=== PATIENT | female | born 1965 | race African-American/Black ===

== ENCOUNTER 2021-04-16 12:45 | Outpatient (REF) | payer MEDICAID, SELFPAY ==
--- NOTE | ~2021-04-16 | XR_ITS ---
EXAMINATION: XR CERVICAL SPINE CLINICAL INFORMATION: Cervical spondylosis. COMPARISON: None. TECHNIQUE: 6 views of the cervical spine, inclusive of flexion and extension views, were obtained. FINDINGS: There is no evidence of acute fracture of the cervical spine. No abnormal prevertebral soft tissue swelling is seen. There is anterior marginal spurring seen C4-C7. Disc spaces are essentially maintained. There is some mild neural foraminal narrowing related to spurring of the joints of [place] bilaterally at the C5-C6 level. No destructive bony lesion appreciated. XR/XR cervical spine min 6V IMPRESSION: Cervical spondylosis, most significant at the C5-C6 level without evidence of acute fracture or destructive bony lesion.
== END 2021-04-16 12:46 | disposition home or self-care (01) ==
LOC: HO.XRAY 12:45
PROVIDERS: PCP Internal Medicine; Visit Provider Psychiatry & Neurology Neurology
DX: M47.812 Spondylosis without myelopathy or radiculopathy, cervical region (principal)
CPT/HCPCS: 72052

== ENCOUNTER 2022-11-08 11:23 | Outpatient (REF) | payer MEDICAID, SELFPAY ==
--- NOTE | ~2022-11-08 | MM_ITS ---
EXAMINATION: MM SCREENING DIGITAL BREAST TOMOSYNTHESIS, BILATERAL CLINICAL INFORMATION: Screening. Asymptomatic. Family history breast cancer including mother, 2 sisters. The lifetime risk of breast cancer based on the Tyrer-Cuzick Model is 15%. COMPARISON: Mammography: 04/23/2017, 05/28/2012 TECHNIQUE: Digital breast tomosynthesis is performed in both the craniocaudal and mediolateral oblique views along with computer-aided detection (CAD). Synthesized 2D images are generated from the tomosynthesis. FINDINGS: There are scattered areas of fibroglandular density (ACR BI-RADS breast composition Category b). There are no significant masses, abnormal calcifications, or other abnormalities. Breast tissue composition borders on predominantly fatty. Background stromal and fibroglandular densities are similar to prior studies. No developing density. The axilla and skin contours are unremarkable. MM/MM tomosynthesis screening BI IMPRESSION: No mammographic evidence of malignancy. ASSESSMENT: BI-RADS 1: Negative RECOMMENDATION: Routine annual mammography screening. This patient's information was entered into a reminder system with a target due date for their next mammogram.
== END 2022-11-08 11:24 | disposition home or self-care (01) ==
LOC: HO.MAMMO 11:23
PROVIDERS: PCP Internal Medicine; Visit Provider Internal Medicine
DX: Z12.31 Encounter for screening mammogram for malignant neoplasm of breast (principal)
CPT/HCPCS: 77063; 77067

== ENCOUNTER 2022-11-26 13:26 | Outpatient (REF) | payer MEDICAID, SELFPAY ==
--- NOTE | ~2022-11-26 | XR_ITS ---
EXAMINATION: XR HIP, LEFT CLINICAL INFORMATION: Left groin pain Pain radiating to the back COMPARISON: Left hip 01/14/2012 TECHNIQUE: Two views of the left hip. FINDINGS: The bones are intact. No fracture. Alignment is anatomic. Hip joint space is maintained. The left SI joint is normal. XR/XR hip LT min 2V IMPRESSION: No bony abnormality.
== END 2022-11-26 13:27 | disposition home or self-care (01) ==
LOC: HO.XRAY 13:26
PROVIDERS: PCP Internal Medicine; Visit Provider Internal Medicine
DX: R10.32 Left lower quadrant pain (principal)
CPT/HCPCS: 73502

== ENCOUNTER 2023-11-14 11:44 | Outpatient (REF) | payer MEDICAID, SELFPAY ==
--- NOTE | ~2023-11-14 | MM_ITS ---
EXAMINATION: MM SCREENING DIGITAL BREAST TOMOSYNTHESIS, BILATERAL CLINICAL INFORMATION: Screening. Asymptomatic. COMPARISON: Mammography: This study is compared with prior exams dating back to 2017. TECHNIQUE: Digital breast tomosynthesis is performed in both the craniocaudal and mediolateral oblique views along with computer-aided detection (CAD). Synthesized 2D images are generated from the tomosynthesis. FINDINGS: The breasts are almost entirely fatty (ACR BI-RADS breast composition Category a). There are no significant masses, abnormal calcifications, or other abnormalities. MM/MM tomosynthesis screening BI IMPRESSION: No mammographic evidence of malignancy. ASSESSMENT: BI-RADS BI-RADS 1 - Negative RECOMMENDATION: Routine annual mammography screening. 1 year F/U This examination should not preclude the clinical evaluation of a suspicious palpable abnormality. This patient's information was entered into a reminder system with a target due date for their next mammogram.
== END 2023-11-14 11:45 | disposition home or self-care (01) ==
LOC: HO.MAMMO 11:44
PROVIDERS: PCP Internal Medicine; Visit Provider Internal Medicine
DX: Z12.31 Encounter for screening mammogram for malignant neoplasm of breast (principal)
CPT/HCPCS: 77063; 77067

== ENCOUNTER → 2023-11-14 12:15 | Outpatient (BNV) | payer MEDICAID, SELFPAY | PROVIDERS: PCP Internal Medicine; Visit Provider Radiology Diagnostic Radiology | DX: Z12.31 Encounter for screening mammogram for malignant neoplasm of breast (principal) | CPT/HCPCS: 77063; 77067 ==

== ENCOUNTER 2023-11-18 14:00 | Outpatient (REF) | payer MEDICAID, SELFPAY ==
[2023-11-18 16:02] LABS: MANUAL DIFF FLAG NO
[2023-11-18 16:09] LABS: Basophils Absolute Auto 0.1 X10*3/uL (0.0-0.2); Basophils Percent Auto 0.7 % (0-2); Eosinophils Absolute Auto 0.1 X10*3/uL (0.0-0.4); Eosinophils Percent Auto 1.1 % (0-4); Hematocrit 40.4 % (37.0-47.0); Hemoglobin 13.2 g/dl (12.0-16.0); Imm Gran Abs Auto 0.02 X10*3/uL (0.00-0.03); Imm Gran Pct Auto 0.2 % (0.0-0.4); Lymphocytes Absolute Auto 3.5 X10*3/uL (1.2-4.9); Lymphocytes Percent Auto 37.8 % (20-40); Mean Corpuscular HGB Conc 32.7 g/dl (31.0-35.0); Mean Corpuscular Hemoglobin 28.4 pg (27.0-33.0); Mean Corpuscular Volume 87.1 fL (80.0-98.0); Mean Platelet Volume 11.7 fL (9.4-12.3); Monocytes Absolute Auto 0.5 X10*3/uL (0.1-1.2); Monocytes Percent Auto 4.9 % (2-11); Neutrophils Absolute Auto 5.1 x10*3/uL (2.0-8.3); Neutrophils Percent Auto 55.3 % (45-73); Platelet Count 258 X10*3/uL (160-400); Red Blood Count 4.64 X10*6/uL (4.20-5.50); Red Cell Distribution Width 13.6 % (11.0-16.0); White Blood Count 9.1 X10*3/uL (4.8-10.8)
[2023-11-18 16:34] LABS: Alanine Aminotransferase 16 U/L (0-31); Alkaline Phosphatase 97 U/L (39-117); Anion Gap 13 (12-20); Aspartate Amino Transferase 20 U/L (5-31); Bilirubin Total 0.2 mg/dL (0.0-1.0); Blood Urea Nitrogen 12 mg/dL (9-16); Calcium 9.5 mg/dL (8.4-10.2); Carbon Dioxide 24 mmol/L (22-29); Chloride 109 mmol/L (96-108); Cholesterol 254 mg/dL (<200); Estimated Glomerular Filt Rate > 60; Glucose Random 90 mg/dL (60-115); HDL Cholesterol 43 mg/dL (>40); LDL Cholesterol Calculated 159 mg/dL (<100); Sodium 142 mmol/L (135-145); Total Protein 7.8 g/dL (6.5-8.0); Triglycerides 262 mg/dL (<150)
[2023-11-19 09:30] LABS: HIV AB/AG Nonreactive (Nonreactive); HIV Num 1 0.05 S/CO (0.00-0.99)
[2023-11-27 07:59] LABS: HPV mRNA E6/E7 rflx Not Detected (Not Detected)
== END 2023-11-18 14:01 | disposition home or self-care (01) ==
LOC: HO.HHCL 14:00
PROVIDERS: Advanced Practice Midwife; Visit Provider Internal Medicine
DX: Z00.00 Encounter for general adult medical examination without abnormal findings (principal); E78.00 Pure hypercholesterolemia, unspecified; E66.09 Other obesity due to excess calories; Z68.37 Body mass index [BMI] 37.0-37.9, adult
CPT/HCPCS: 36415; 80053; 80061; 84443; 85025; 87389; 87624; 88142

== ENCOUNTER 2024-12-06 11:45 | Outpatient (REF) | payer MEDICAID, SELFPAY ==
--- OUTSIDE RECORDS SUMMARY | 2024-12-06 13:20 | XMS_ITS | Clinical Summary ---
Author Organization [employer] Address [address] [place] [address] [address] [place] [address] Care Team Providers Care Review Manager Name Role Phone King Chin MD Primary Care Provider [phone] Allergies No known active allergies Medications * This document contains information received from the source organization and may not represent a complete record from that organization. tiZANidine (Zanaflex) 4 MG tabletIndicati ons:Chronic midline low back pain without sciatica TAKE 1 TABLET BY MOUTH THREE TIMES A DAY 90 tablet 11 4 Active Melatonin Maximum Strength 5 MG tablet TAKE 1 TABLET BY MOUTH EVERY DAY 30 tablet 11 4 Active ibuprofen 800 MG tablet TAKE 1 TABLET BY MOUTH TWICE A DAY 60 tablet 2 5 Active traZODone (Desyrel) 100 MG tablet TAKE 1 TABLET BY MOUTH EVERYDAY AT BEDTIME 30 tablet 3 5 Active diclofenac (Cataflam) 50 MG tabletIndicati ons:Plantar fasciitis TAKE 1 TABLET BY MOUTH THREE TIMES A DAY 40 tablet 5 Active sertraline (Zoloft) 50 MG tablet TAKE 1 TABLET BY MOUTH EVERY DAY 30 tablet 4 5 Active D3-1000 25 MCG (1000 UT) capsule TAKE 1 CAPSULE BY MOUTH EVERY DAY IN THE MORNING 90 capsule 1 5 Active hydrOXYzine HCl (Atarax) 25 MG tablet TAKE 1 TABLET BY MOUTH EVERY DAY 30 tablet 5 5 Active hydrOXYzine HCl (Atarax) 25 MG tablet TAKE 1 TABLET BY MOUTH EVERY DAY 30 tablet 5 4 025 Discontinued Active Problems Problem Noted Date Diagnosed Date Mixed anxiety and depressive disorder 11/08/2022 Assessment & Plan (11/08/2022 11:53 AM EDT): Assessment and Plan: Yolanda was engaged with active reflective listening and open- ended questions. Assessed symptoms, risks, and social supports with direct questions. Discussed current symptoms intensity and frequency. Emotions were normalized and validated. Yolanda identified partner support as coping mechanisms and protective factors. Provided psychoeducation around coping mechanism to address depression and anxiety sxs. . Discussed OP therapy and Medication Management. She agreed to referrals. Provided education around integrated medicine and the options of follow up BE's as needed. Provided contact information should questions or concerns arise. Plan:Yolanda will engage in effective coping mechanisms discussed. She will be referred for Ind. Therapy and Medication Management. Patient with lack of motivation, hopelessness, insomnia, little energy, decrease appetite, feeling like a failure, trouble with concentration, passive thoughts, nervousness, persistent worry, unable to relax, irritability and fear. She denies SI, HI, or self-harm, reported auditory hallucinations without commands in the context of living alone with family stressor. Patient will benefit from Ind. Therapy and Medication Management. At this time Yolanda Silva meets criteria for Visit Diagnoses: Problem List Items Addressed This Visit Other Mixed anxiety and depressive disorder - Primary Relevant Orders Referral to Behavioral Health Patient ready to address current needs Yes Strengths include She is in action stage of change and her motivation will served as treatment engagement. PLAN: 1. Follow up with [facility]: Not recommended for follow-up 2. Patient goal is feel better mentally 3. Behavioral Recommendations a. Ind. Therapy b. Medication Management c. [facility] available to offer support as needed. Hypercholesterolemia 10/25/2018 Osteoarthritis 10/25/2018 Substance abuse 10/25/2018 Encounters Date Type Department Care Team Description 11/24/2024 Refill [facility] [address] [facility] [place] [address] King Chin MD 11/18/2024 Telephone [facility] [address] [place] [address] King Chin MD No Show 10/27/2024 Refill [facility] [address] [facility] [place] [address] King Chin MD Plantar fasciitis 09/28/2024 Refill [facility] [address] [place] [address] King Chin MD from Last 3 Months Immunizations Immunization Administration Dates Next Due Influenza injectable quadrivalent preservative f ree 05/07/2023 Family History Medical History Relation Name Comments Prostate cancer Brother 1 Throat cancer Brother 2 Stomach cancer Father Uterine cancer Mother Breast cancer Sister 1 Breast cancer Sister 2 Relation Name Status Comments Brother 1 Alive Brother 2 Unknown Father Mother Sister 1 Sister 2 Social History Tobacco Use Types Packs/Day Years Used Date Smoking Tobacco: Never Smokeless Tobacco: Never Tobacco Cessation:Counseling Given: No Alcohol Use Standard Drinks/Week Comments Never 0 (1 standard drink = 0.6 oz pur e alcohol) Depression Answer Date Recorded Patient Health Questionnaire-9 Score 22 05/07/2023 Patient Health Questionnaire-9 Score 22 05/07/2023 Last PHQ-9: Questionnaire Data Not on file 1 07/07/2022 Housing Stability Answer Date Recorded What is your housing situation today? I do not have housing (Staying with others, in a hotel, in a fdc, living outside on the street, on a beach, in a car, or in a park 04/01/[address] you li ve. Do you have problems with any of the following? None of the above 04/01/2023 Food Insecurity Answer Date Recorded Within the past 12 months, y ou worried that your food would run out before you got money to buy more: Sometimes True 2022 Within the past 12 months,th e food you bought just didn't last and you didn't have enough money to get more: Sometimes True 04/10/2023 Transportation Answer Date Recorded In the past 12 months, has l ack of transportation kept you from medical appts, meetings, work or from getting things needed for daily living? No 04/10/2023 Utilities Answer Date Recorded In the past 12 months, has t he electric, gas, oil or water company threatened to shut off services in your home? No 04/10/2023 Depression Answer Date Recorded Patient Health Questionnaire-2 Score 6 05/07/2023 Comments No Sex and Gender Information Value Date Recorded Sex Assigned at Female 04/22/2022 10:22 AM EDT Legal Sex Female 10:22 AM EDT Gender Identity Choose not to disclose 10:22 AM EDT Sexual Orientation Choose not to disclose 2021 10:22 AM EDT Last Filed Vital Signs Vital Sign Reading Time Taken Comments Blood Pressure 149/72 11/25/2023 3:46 PM EDT Pulse 68 11/25/2023 3:46 PM EDT Temperature 36.2 ??C (97.1 ??F) 11/25/2023 3:46 PM ED T Respiratory Rate 20 11/25/2023 3:46 PM EDT Oxygen Saturation 98% 11/25/2023 3:46 PM EDT Inhaled Oxygen Concentration - - Weight 85.7 kg (189 lb) 11/25/2023 3:46 PM EDT Height 157.5 cm (5' 2 ) 11/25/2023 3:46 PM EDT Body Mass Index 34.57 11/25/2023 3:46 PM EDT Plan of Treatment Upcoming Encounters Date Type Department Care Team (Late st Contact Info) Description 12/13/2024 2:45 PM EDT Office Visit [facility] [address] [place] [address] King Chin MD [address] [place] [address] 12/22/2024 2:00 PM EDT Office Visit [facility] [address] [place] [address] Aneudy Chin Health Maintenance Due Date Last Done Comments CT Colonography 1965 Colonoscopy 1965 Colorectal Cancer Screening 1965 Dental Oral Exam 1965 Dental Prophylaxis 1965 Dental X-Ray: Bitewings 1965 Dental X-Ray: Full Mouth 1965 FIT DNA/Cologuard 1965 FIT 1965 FOBT 1965 Sigmoidoscopy 1965 Disability Screening 1965 Alcohol/Substance Use Screening 1975 Pneumococcal Vaccine: 50+ Years (1 of 1 - PCV) 2013 Zoster Vaccines (1 of 2) 2013 Depression Monitoring 11/05/2023 05/07/2023, 023 COVID-19 Vaccine ( season) 2024 SDOH Screening 04/01/2024 04/01/2023 Tobacco Screening 11/24/2024 11/25/2023 Influenza Vaccine (Season Ended) 2025 05/07/2023, 03/19/2021, 04/17/2017, Additional history exists Mammogram 11/13/2025 11/14/2023, 11/08/2022 DTaP/Tdap/Td Vaccines (2 - Td or Tdap) 04/17/2027 04/17/2017 Cervical Cancer Screening 11/17/2028 HPV/Cotest 11/17/2028 11/18/2023 Pap Smear 11/17/2028 11/18/2023 RSV Patients and Patients Aged 60 years or older (1 - 1-dose 75+ series) 2038 Hepatitis C Screening Completed 12/05/2020 HIV Screening Completed 11/18/2023, 12/05/2020 HIB Vaccines Aged Out No longer eligi ble based on patient's age to complete this topic HPV Vaccines Aged Out No longer eligi ble based on patient's age to complete this topic Hepatitis A Vaccines Aged Out No long er eligible based on patient's age to complete this topic Hepatitis B Vaccines Aged Out No long er eligible based on patient's age to complete this topic IPV Vaccines Aged Out No longer eligi ble based on patient's age to complete this topic Meningococcal B Vaccine Aged Out No l onger eligible based on patient's age to complete this topic Meningococcal Vaccine Aged Out No sarita slava eligible based on patient's age to complete this topic RSV under 20 months Aged Out No longe r eligible based on patient's age to complete this topic Rotavirus Vaccines Aged Out No longer eligible based on patient's age to complete this topic Procedures Procedure Name Priority Date/Time Associated Diagnosis Comments HIV 1/2 ANTIGEN/ANTIBODY, FOURTH GENERATION W/RFL Routine 11/18/2023 2:02 PM EDT Annual physical exam HPV MRNA E6/E7 REFLEX TO HPV 16, 18/45 Routine 11/18/2023 1:31 PM EDT PAP SMEAR Routine 11/18/2023 1:31 PM EDT Cervical cancer screening BI MAMMOGRAM SCREENING TOMOSYNTHESIS BILATERAL Routine 11/14/2023 12:15 PM EDT ZZZ HISTORICAL HEPATITIS C AB W/REFL TO HCV RNA, QN, PCR Routine 12/05/2020 2:09 PM EDT from Last 3 Months or Most Recently Relevant to Health Maintenance Results * HIV-1/2 Antigen and Antibodies, Fourth Generation, with Reflexes (11/18/2023 2:02 PM EDT) HIV AB/AG Nonreactive Nonreactive [facility] Comment:HIV-1 p24 Ag and/or HIV-1/HIV-2 Ab not detected.A test result that is nonreactive does not exclude thepossibility of exposure to or infection with HIV-1 and/orHIV-2. Nonreactive results in this assay for individualswith prior exposure to HIV-1 and/or HIV-2 may be due toantigen and antibody levels that are below the limit ofdetection of this assay.The [employer] HIV Ag/Ab Combo assay result andsupplemental assay results should be interpreted inconjunction with the patient's clinical presentation,history and other laboratory results. If the results areinconsistent with clinical evidence, additional testing issuggested to confirm the result. Blood Venous blood specimen / Unknown 11/18/2023 2:02 PM EDT 11/18/2023 4:01 PM EDT us King Chin MD LAB BLOOD ORDERABLES Final Result [facility] [address] [place] [phone] * HPV mRNA E6/E7 w/Reflex to HPV Genotypes 16, 18/45 (11/18/2023 1:31 PM EDT) HPV nRNA E6/E7 Not Detected Not Detected [facility] Comment:Methodology: Transcr iption-Mediated AmplificationThis assay detects E6/E7 viral messenger RNA (mRNA) from 14high-risk HPV types (16,18,31,33,35,39,45,51,52,56,58,59,66,68).Cervical sources are required for HPV testing.If a vaginal source from a patient who has had atotal hysterectomy with removal of cervix wassubmitted, please contact the testing laboratoryfor alternative testing options.For additional information, please refer tohttp://education.Scrip-t/faq/LYJ165t9(This link if provided for information/educational purposes only.)THIS TEST WAS PERFORMED AT:[employer] [place] [phone] KNOX MD HPV mRNA E6/E7 [facility] HPV 16 RNA [facility] HPV 18/45 RNA [facility] 11/18/2023 1:31 PM EDT 11/19/2023 10:30 AM EDT us Andrew Méndez [facility] LAB CYTOLOGY ORDERABLES F inal Result [facility] [address] [place] [address] [phone] * Pap Smear (11/18/2023 1:31 PM EDT) Swab Cervix uteri structure / Unknown 11/18/2023 1:31 PM EDT 11/19/2023 10:30 AM EDT Narrative [facility] - 12/08/2023 5:09 PM EDT ----- ------- Name: Yolanda Kahn ? Age/Sex: 58/F ? : 1965 Unit#: [id number] ?? Attend Dr: King Chin MD ?Re11/18/23 ?Status: DEP REF ? Location: HO.HHCL ? Disch: ? ----- ------- SPEC : [id number] ?RECD: 11/19/23-1030 ? STATUS: ??SOUT ? REQ NUM: [id number] ? NOHEMI: 11/18/23-1331 ? SUBM DR: ANDREW MÉNDEZ CNM ? ENTERED: ??11/19/23-1404 ?SP TYPE: Pap Smr ?OTHR DR: ? ORDERED: ??Pap Smear ? Interpretation ?? Satisfactory for evaluation. ?? Negative for intraepithelial lesion or malignancy. ?? Coccobacilli consistent with shift in vaginal mert. ? HPV mRNA E6/E7: ?NOT DETECTED ? This assay detects E6/E7 viral messenger RNA (mRNA) from 14 high-risk HPV types (16, 18, ?? 31, 33, 35, 39, 45, 51, 52, 56, 58, 59, 66, 68) ? HPV testing performed by [facility], [place], [place]. ??See reference laboratory ?? portion of the EMR for entire report. ?Clinical Information LMP: Postmenopausal Previous PAP test: Unknown date/findings ? Material Received ?? ThinPrep-Vaginal/Cervical ----- ------- Signed (signature on file) Samantha Scruggs Armen 12/08/23 7525 ? ----- ------- ? END OF REPORT ? us Andrew CARDENAS LAB CYTOLOGY ORDERABLES F inal Result [facility] [address] [place] [address] [phone] * BI Mammogram Screening Tomosynthesis Bilateral (11/14/2023 12:15 PM EDT) Anatomical Region Laterality Modality Breast Bilateral Mammography 11/14/2023 12:1 5 PM EDT Narrative 12/12/2023 2:59 PM EDT ? [facility] [place] ? [address] ?[place] [address] ? Mammography Report ? Signed ? Patient: Yolanda Kahn ?MR#: [id number] ?? [id number] ? : 1965 ?Acct:[id number] ? Age/Sex: 58 / F ?ADM Date: 11/14/23 ? Loc: HO.MAMMO ? Attending Dr: King Chin MD ? Ordering Physician: King Chin MD ?Results: 1 ?? Negative ? Date of Service: 11/14/23 ?Follow Up: 1 Year From Orig ?? inal Mammogram ? Procedure(s): MM tomosynthesis screening BI ?? Accession Number(s): [id number] ? cc: King Chin MD ? EXAMINATION: ?? MM SCREENING DIGITAL BREAST TOMOSYNTHESIS, BILATERAL ? CLINICAL INFORMATION: ? Screening. Asymptomatic. ? COMPARISON: ?? Mammography: This study is compared with prior exams dating back to ?? 2017. ? TECHNIQUE: ?? Digital breast tomosynthesis is performed in both the craniocaudal and ?? mediolateral oblique views along with computer-aided detection (CAD). ?? Synthesized 2D images are generated from the tomosynthesis. ? FINDINGS: ?? The breasts are almost entirely fatty (ACR BI-RADS breast composition ?? Category a). ? There are no significant masses, abnormal calcifications, or other ?? abnormalities. ? MM/MM tomosynthesis screening BI ?? IMPRESSION: ?? No mammographic evidence of malignancy. ? ASSESSMENT: ? BI-RADS BI-RADS 1 - Negative ? RECOMMENDATION: ?? Routine annual mammography screening. ? 1 year F/U ? This examination should not preclude the clinical evaluation of a ?? suspicious palpable abnormality. ? This patient's information was entered into a reminder system with a ?? target due date for their next mammogram. ? Dictated By: ?Sumaya Serrano MD ? Signed By: ?<Electronically signed by Sumaya Serrano MD in OV> ? 12/12/23 1455 ? DD/ 1215 ? TD/TT: ? Manager Advertising: ? Procedure Note Isabel, Image - 12/12/2023 [facility] [address] [place] [address] Mammography Report Signed Patient: Yolanda Kahn#: [id number] : 1965Acct:[id number] Age/Sex: 58 / FADM Date: 11/14/23 Loc: HO.MAMMO Attending Dr: King Chin MD Ordering Physician: King Chin MDResults: 1 Negative Date of Service: 11/14/23Follow Up: 1 Year From Orig inal Mammogram Procedure(s): MM tomosynthesis screening BI Accession Number(s): [id number] cc: King Chin MD EXAMINATION: MM SCREENING DIGITAL BREAST TOMOSYNTHESIS, BILATERAL CLINICAL INFORMATION: Screening. Asymptomatic. COMPARISON: Mammography: This study is compared with prior exams dating back to 2017. TECHNIQUE: Digital breast tomosynthesis is performed in both the craniocaudal and mediolateral oblique views along with computer-aided detection (CAD). Synthesized 2D images are generated from the tomosynthesis. FINDINGS: The breasts are almost entirely fatty (ACR BI-RADS breast composition Category a). There are no significant masses, abnormal calcifications, or other abnormalities. MM/MM tomosynthesis screening BI IMPRESSION: No mammographic evidence of malignancy. ASSESSMENT: BI-RADS BI-RADS 1 - Negative RECOMMENDATION: Routine annual mammography screening. 1 year F/U This examination should not preclude the clinical evaluation of a suspicious palpable abnormality. This patient's information was entered into a reminder system with a target due date for their next mammogram. Dictated By: Sumaya Serrano MD Signed By: <Electronically signed by Sumaya Serrano MD in OV> 12/12/23 1455 DD/ 1215 TD/TT: Manager Advertising: us King Chin MD IMG BI PROCEDURES Final Res ult * HEPATITIS C AB W/REFL TO HCV RNA, QN, PCR (12/05/2020 2:09 PM EDT) HEPATITIS C ANTIBODY NON-REACT JUSTO NON-REACT JUSTO [facility] INDEX 0.01 <1.00 [facility] Comment: ?? HCV antibody was non-reactive. There is no laboratory ?? evidence of HCV infection. ?? In most cases, no further action is required. However, if recent HCV exposure is suspected, a test for HCV RNA (test code 30145) is suggested. ?? For additional information please refer to http://education.[employer].SuperSecret/faq/AMK04p9 (This link is being provided for informational/ educational purposes only.) ?? 12/05/2020 2:09 PM EDT us Mindy Rashid MD HISTORICAL/NON ORDERABLE LABS Fi nal Result [facility] [address] from Last 3 Months or Most Recently Relevant to Health Maintenance Insurance [facility] STANDARD DENTAL-[facility] MEDICAID STAND ADULT Care Teams Review Manager Relationship Specialty Start Date End Date King Chin MD [address] [place] [phone] PCP - General Internal Medicine 03/03/12
== END 2024-12-06 11:46 | disposition home or self-care (01) ==
LOC: HO.MAMMO 11:45
PROVIDERS: PCP Internal Medicine; Visit Provider Internal Medicine
DX: Z12.31 Encounter for screening mammogram for malignant neoplasm of breast (principal)
CPT/HCPCS: 77063; 77067

== ENCOUNTER → 2024-12-06 12:30 | Outpatient (BNV) | payer MEDICAID, SELFPAY | PROVIDERS: PCP Internal Medicine; Visit Provider Internal Medicine | DX: Z12.31 Encounter for screening mammogram for malignant neoplasm of breast (principal) | CPT/HCPCS: 77063; 77067 ==